=== PATIENT | male | born 1990 | race Caucasian/White ===

== ENCOUNTER 2023-02-22 17:04 | Emergency (ER) | payer BC, MEDICAID ==
[~2023-02-22] VITALS: Ht 177.8 cm; Wt 79.4 kg
[2023-02-22 17:58] VITALS: BP 121/82
[2023-02-22] MEDS ORDERED: AMOX/K CLAV875 M1 PO (18:07)
[2023-02-22 20:12] VITALS: BP 121/82
== END 2023-02-22 20:12 | disposition home or self-care (01) | DRG 605 ==
LOC: ED 17:04
DX: S31.815A Open bite of right buttock, initial encounter (principal); I10 Essential (primary) hypertension; W54.0XXA Bitten by dog, initial encounter